=== PATIENT | male | born 1975 | race Two or more races ===

== ENCOUNTER 2020-09-22 22:33 | Emergency (ER) | payer MEDICAID, OTHER ==
[~2020-09-22] VITALS: Ht 170.2 cm; Wt 99.8 kg
[2020-09-22 23:45] LABS: Calcium 8.1 mg/dL (8.5-10.1); Magnesium 2.5 mg/dL (1.6-2.6); Potassium 4.3 mmol/L (3.5-5.1)
[2020-09-22 23:53] LABS: BUN/Creatinine Ratio 12.2; Bilirubin, Total 0.6 mg/dL (0.2-1.0)
[2020-09-23 00:21] LABS: Basophils # (auto) 0 10 ^3/uL (0-0.2); Eosinophils # (auto) 0 10 ^3/uL (0-0.8); Nucleated Red Blood Cells % 0.1 %
[2020-09-23 00:23] LABS: Basophils % (auto) 0.6 % (0.0-2.0); Hemoglobin 19.7 g/dL (13.5-17.5); Lymphocytes # (auto) 1.3 10 ^3/uL (0.4-5.4); Lymphocytes % (auto) 21.6 % (10.0-50.0); Mean Corpuscular Hemoglobin 30.7 pg (28.0-32.0); Mean Corpuscular Hgb Conc. 34.6 g/dL (32.0-36.0); Mean Corpuscular Volume 88.6 fL (80.0-100.0); Monocytes # (auto) 0.6 10 ^3/uL (0-1.3); Monocytes % (auto) 9.8 % (0.0-12.0); Platelet Count (auto) 141 10^3/uL (140-450); Red Blood Cells 6.44 10^6/uL (4.5-5.90); Red Cell Distribution Width 14.6 % (11.8-14.3); White Blood Cell 5.8 10^3/uL (4.4-10.8)
[2020-09-23 00:36] LABS: INR 1.05 (0.9-1.15); Partial Thromboplastin Time 29.6 sec (23.0-31.2)
[2020-09-23 01:42] VITALS: BP 142/106
== END 2020-09-23 04:28 | disposition home or self-care (01) ==
LOC: ER 22:37
DX: U07.1 COVID-19 (principal)
CPT/HCPCS: 36415; 71045; 80053; 83735; 83880; 84484; 85025; 85610; 85730; 87426; 87804; 93005